=== PATIENT | female | born 1990 | race Caucasian/White ===

== ENCOUNTER → 2024-05-21 06:49 | Outpatient (REF) | payer OTHER, SELFPAY | LOC: HWRAD 06:49 | PROVIDERS: ATTENDING PHYSICIAN Physician Assistant Medical | DX: E04.1 Nontoxic single thyroid nodule (principal) | CPT/HCPCS: 76536 ==

== ENCOUNTER → 2024-05-30 07:16 | Outpatient (REF) | payer OTHER, SELFPAY | LOC: HWRAD 07:16 | PROVIDERS: ATTENDING PHYSICIAN Physician Assistant Medical | DX: M79.652 Pain in left thigh (principal); Z86.718 Personal history of other venous thrombosis and embolism | CPT/HCPCS: 93971 ==